=== PATIENT | male | born 1955 | race Caucasian/White ===

== ENCOUNTER 2017-06-20 17:30 | Emergency (ER) | payer BC ==
[~2017-06-20] VITALS: Ht 170.2 cm; Wt 113.0 kg
[~2017-06-20 17:30] MED LIST: NITROFURANTOIN100 MG PO; PERCOCET 5/31 TABLET PO
[2017-06-20 18:03] VITALS: BP 161/89
== END 2017-06-20 18:04 | disposition home or self-care (01) ==
LOC: EME 17:30
DX: S01.81XA Laceration without foreign body of other part of head, initial encounter (principal); V86.59XA Driver of other special all-terrain or other off-road motor vehicle injured in nontraffic accident, initial encounter; I10 Essential (primary) hypertension
CPT/HCPCS: 99281; 99283